=== PATIENT | female | born 1995 | race African-American/Black ===

== ENCOUNTER 2016-09-29 04:07 | Emergency (ER) | payer MEDICAID ==
[~2016-09-29] VITALS: Ht 172.7 cm; Wt 65.0 kg
[2016-09-29 04:10] VITALS: BP 153/80; PULSE 100; RESP 16; TEMP 98.7; O2SAT 99
[2016-09-29] MEDS ORDERED: LIDOCAINE HCL 1% PF 30 ML VIAL INFIL ONE (04:30)
--- NOTE | 2016-09-29 04:34 | PD ---
HPI Chief Complaint: Laceration/Skin Injury Time Seen by Provider: 04:15 Travel History International Travel<30 days: No Contact w/Intl Traveler<30days: No Traveled to known affect area: No History of Present Illness HPI 21-year-old female presents voluntarily for psychiatric evaluation. She reports that tonight she became involved in an argument with her best friend and afterwards she was feeling suicidal. She cut herself superficially on the right leg with a knife. At this point in time she is still feeling somewhat depressed and has passive suicidal thoughts but she would like to see the psychiatrist. She denies any drug use. She admits to occasional alcohol use. Last tetanus vaccination within one year. No other complaints. [facility] Social History Alcohol Use: Yes Tobacco Use: Yes Allergies-Medications (Allergen,Severity, Reaction): Coded Allergies: No Known Allergies (Unverified , 09/29/16) Reported Meds & Prescriptions Reported Meds & Active Scripts Active Active Prescriptions or Reported Medications Unobtainable Review of Systems Except as stated in HPI: all other systems reviewed are Neg Physical Exam Narrative GENERAL: Well-developed well-nourished female who is somewhat anxious on initial examination. SKIN: Warm and dry. Superficial wounds noted to the right leg. There is a 2 cm superficial laceration that extends into the dermis on the right lower leg. HEAD: Atraumatic. Normocephalic. EYES: Pupils equal and round. No scleral icterus. No injection or drainage. ENT: No nasal bleeding or discharge. Mucous membranes pink and moist. NECK: Trachea midline. No JVD. CARDIOVASCULAR: Regular rate and rhythm. No murmur appreciated. RESPIRATORY: No accessory muscle use. Clear to auscultation. Breath sounds equal bilaterally. GASTROINTESTINAL: Abdomen soft, non-tender, nondistended. Hepatic and splenic margins not palpable. MUSCULOSKELETAL: No obvious deformities. No clubbing. No cyanosis. No edema. NEUROLOGICAL: Awake and alert. No obvious cranial nerve deficits. Motor grossly within normal limits. Normal speech. PSYCHIATRIC: Anxious, depressed. Data Data Last Documented VS Vital Signs Date Time Temp Pulse Resp B/P Pulse Ox O2 Delivery O2 Flow Rate FiO2 09/29/16 04:10 98.7 100 16 153/80 99 Room Air Orders Lidocaine Pf 1% Inj (Xylocaine-Mpf 1% In (09/29/16 04:30) Complete Blood Count With Diff (09/29/16 04:22) Comprehensive Metabolic Panel (09/29/16 04:22) Ed Urine Pregnancytest Poc (09/29/16 04:22) Psych Screen (09/29/16 04:22) Drug Screen, Random Urine (09/29/16 04:22) Alcohol (Ethanol) (09/29/16 04:22) Labs Laboratory Tests Test 09/29/16 04:40 White Blood Count 6.3 TH/MM3 Red Blood Count 4.23 MIL/MM3 Hemoglobin 12.7 GM/DL Hematocrit 37.2 % Mean Corpuscular Volume 88.0 FL Mean Corpuscular Hemoglobin 30.1 PG Mean Corpuscular Hemoglobin 34.2 % Concent Red Cell Distribution Width 12.8 % Platelet Count 236 TH/MM3 Mean Platelet Volume 9.1 FL Neutrophils (%) (Auto) 61.9 % Lymphocytes (%) (Auto) 30.6 % Monocytes (%) (Auto) 7.1 % Eosinophils (%) (Auto) 0.0 % Basophils (%) (Auto) 0.4 % Neutrophils # (Auto) 3.9 TH/MM3 Lymphocytes # (Auto) 1.9 TH/MM3 Monocytes # (Auto) 0.5 TH/MM3 Eosinophils # (Auto) 0.0 TH/MM3 Basophils # (Auto) 0.0 TH/MM3 CBC Comment DIFF FINAL Differential Comment Sodium Level 142 MEQ/L Potassium Level 3.3 MEQ/L Chloride Level 109 MEQ/L Carbon Dioxide Level 21.6 MEQ/L Anion Gap 11 MEQ/L Blood Urea Nitrogen 7 MG/DL Creatinine 0.86 MG/DL Estimat Glomerular Filtration 102 ML/MIN Rate Random Glucose 93 MG/DL Calcium Level 8.1 MG/DL Total Bilirubin 0.3 MG/DL Aspartate Amino Transf 19 U/L (AST/SGOT) Alanine Aminotransferase 17 U/L (ALT/SGPT) Alkaline Phosphatase 68 U/L Total Protein 7.2 GM/DL Albumin 3.8 GM/DL Urine Opiates Screen NEG Urine Barbiturates Screen NEG Urine Amphetamines Screen NEG Urine Benzodiazepines Screen NEG Urine Cocaine Screen NEG Urine Cannabinoids Screen POS Ethyl Alcohol Level 142 MG/DL MDM Medical Decision Making Medical Screen Exam Complete: Yes Emergency Medical Condition: Yes Medical Record Reviewed: Yes Differential Diagnosis Adjustment reaction, major depressive disorder, acute psychosis, substance induced mood disorder Narrative Course 21-year-old female presents for evaluation of suicidal thoughts and self inflicted wounds on the right leg. Most of the wounds are superficial and do not require repair. One wound extends into the dermis and will be repaired with yolanda, she verbally consents. She is agreeable to staying for voluntary psychiatric evaluation. Mental health screening discussed with the patient. Psychiatric screen ordered. Potassium 3.3, oral potassium chloride administered. Medically cleared. Procedures Procedure Narrative LACERATION LOCATION: Right leg LENGTH: 2 cm NUMBER OF STITCHES/YOLANDA: 4 REPAIR: The area of the laceration was prepped with Betadine and sterilely draped. The laceration was infiltrated with 1% lidocaine. The wound was copiously irrigated and explored without evidence of foreign body, tendon injury or neurovascular injury. The wound was closed using yolanda. This was a single layer repair. A sterile dressing was applied. The patient was advised to keep the dressing clean and dry. Patient tolerated the procedure well. Diagnosis Primary Impression: Suicidal ideation Additional Impression: Laceration of right lower leg Qualified Code: S81.811A - Laceration of right lower leg, initial encounter Additional Instructions: Wash the wounds daily with soap and water and apply antibiotic cream and clean bandages. Return in 10 the 14 days for staple removal. Scripts Unable to Obtain Active Prescriptions or Reported Meds Armand Diallo Sep 29, 2016 04:34
[2016-09-29 05:27] LABS: ALT (GPT) 17 U/L (9-42); ANION GAP 11 MEQ/L (5-15); AST (GOT) 19 U/L (16-38); BICARBONATE 21.6 MEQ/L (21.0-32.0); BLOOD UREA NITROGEN 7 MG/DL (7-18); CHLORIDE 109 MEQ/L (98-107); GLOMERULAR FILTRATION RATE 102 ML/MIN (>89); POTASSIUM 3.3 MEQ/L (3.5-5.1); SODIUM (NA) 142 MEQ/L (136-145)
[2016-09-29 05:28] LABS: AUTOMATED NEUTROPHIL # 3.9 TH/MM3 (1.8-7.7); BASOPHIL % 0.4 % (0.0-2.0); HEMATOCRIT 37.2 % (35.0-46.0); HEMO FLAGS DIFF FINAL; LYMPH % 30.6 % (9.0-44.0); LYMPHOCYTE # 1.9 TH/MM3 (1.0-4.8); MEAN CORPUSCULAR HEMOGLOBIN 30.1 PG (27.0-34.0); MEAN CORPUSCULAR HGB CONC 34.2 % (32.0-36.0); MONO % 7.1 % (0.0-8.0); NEUT % 61.9 % (16.0-70.0); PLATELET COUNT 236 TH/MM3 (150-450); RED BLOOD COUNT 4.23 MIL/MM3 (4.00-5.30); RED CELL DISTRIBUTION WIDTH 12.8 % (11.6-17.2); WHITE BLOOD COUNT 6.3 TH/MM3 (4.0-11.0)
[2016-09-29 05:30] LABS: ALKALINE PHOSPHATASE 68 U/L (45-117); TOTAL BILIRUBIN ADULT 0.3 MG/DL (0.2-1.0)
[2016-09-29 05:36] LABS: ALCOHOL 142 MG/DL (0-5)
[2016-09-29] MEDS ORDERED: POTASSIUM CHLORIDE 20 MEQ CONTROLLED RELEASE TAB PO ONE (05:45)
== END 2016-09-29 07:30 | disposition home or self-care (01) ==
LOC: NEPD 04:07
DX: F32.9 Major depressive disorder, single episode, unspecified (principal); R45.851 Suicidal ideations; S81.811A Laceration without foreign body, right lower leg, initial encounter; X78.1XXA Intentional self-harm by knife, initial encounter; F10.10 Alcohol abuse, uncomplicated; F17.290 Nicotine dependence, other tobacco product, uncomplicated
CPT/HCPCS: 12001; 80053; 80307; 84703; 85025